=== PATIENT | female | born 1945 | race African-American/Black ===

== ENCOUNTER 2020-08-14 13:10 | Outpatient (CLI) | payer MEDICARE ==
[2020-08-15 01:19] LABS: SARS-CoV-2 PCR by NAA Not Detected (NotDetected)
== END 2020-08-14 13:11 | disposition home or self-care (01) ==
LOC: CSHLAB 13:10
PROVIDERS: ATTEND Internal Medicine
DX: Z20.822 Contact with and (suspected) exposure to COVID-19 (principal); J45.40 Moderate persistent asthma, uncomplicated
CPT/HCPCS: 87635; U0003; U0005

== ENCOUNTER 2020-08-19 13:19 | Outpatient (CLI) | payer MEDICARE | END 2020-08-19 13:20 | disposition home or self-care (01) | LOC: CSHCP 13:19 | PROVIDERS: ATTEND Internal Medicine | DX: J45.40 Moderate persistent asthma, uncomplicated (principal); R94.2 Abnormal results of pulmonary function studies | CPT/HCPCS: 94060; 94726; 94729; 94760 ==

== ENCOUNTER 2021-06-15 12:30 | Outpatient (CLI) | payer MEDICARE ==
[2021-06-16 00:03] LABS: SARS-CoV-2 PCR by NAA Not Detected (NotDetected)
== END 2021-06-15 12:31 | disposition home or self-care (01) ==
LOC: CSHLAB 12:30
PROVIDERS: ATTEND Internal Medicine Gastroenterology
DX: Z20.822 Contact with and (suspected) exposure to COVID-19 (principal); R13.10 Dysphagia, unspecified; R10.9 Unspecified abdominal pain
CPT/HCPCS: U0003; U0005

== ENCOUNTER 2021-06-18 06:04 | Day surgery (SDC) | payer MEDICARE ==
[2021-06-09 14:00] VITALS: BMI 32.8
[2021-06-18] MEDS ORDERED: Lidocaine 1% MPF 2 ML VIAL ONE (06:50)
[2021-06-18] MEDS ORDERED: Ondansetron PF 4 MG/2 ML Vial ONE (07:27)
== END 2021-06-18 09:54 | disposition home or self-care (01) ==
LOC: CSHSDC 06:04
PROVIDERS: ATTEND Internal Medicine Gastroenterology
PROC: 0DB68ZZ Excision of Stomach, Via Natural or Artificial Opening Endoscopic (ICD-10-PCS; principal; 2021-06-18)
DX: R13.10 Dysphagia, unspecified (principal); R10.9 Unspecified abdominal pain; K31.7 Polyp of stomach and duodenum; K44.9 Diaphragmatic hernia without obstruction or gangrene; I10 Essential (primary) hypertension; E78.5 Hyperlipidemia, unspecified; E11.9 Type 2 diabetes mellitus without complications
CPT/HCPCS: 88305; 88312; J2405

== ENCOUNTER 2022-05-23 07:55 | Day surgery (SDC) | payer MEDICARE ==
[2022-05-19 14:16] VITALS: BMI 33.2
[~2022-05-23 07:55] MED LIST: PROPOFOL 40 ML ONE
[2022-05-23] MEDS ORDERED: PROPOFOL 20 ML ONE (10:22)
[2022-05-23] MEDS ORDERED: Lidocaine 2% PF 100 mg/5 ml Syringe ONE (11:29)
== END 2022-05-23 11:18 | disposition home or self-care (01) ==
LOC: CSHSDC 07:55
PROVIDERS: ATTEND Internal Medicine Gastroenterology
PROC: 0DDH8ZX Extraction of Cecum, Via Natural or Artificial Opening Endoscopic, Diagnostic (ICD-10-PCS; principal; 2022-05-23)
PROC: 0DDN8ZX Extraction of Sigmoid Colon, Via Natural or Artificial Opening Endoscopic, Diagnostic (ICD-10-PCS; 2022-05-23)
DX: K51.40 Inflammatory polyps of colon without complications (principal); K57.30 Diverticulosis of large intestine without perforation or abscess without bleeding; K64.9 Unspecified hemorrhoids; K59.00 Constipation, unspecified; K21.9 Gastro-esophageal reflux disease without esophagitis; I10 Essential (primary) hypertension; E78.5 Hyperlipidemia, unspecified; J45.909 Unspecified asthma, uncomplicated; G47.33 Obstructive sleep apnea (adult) (pediatric); Z79.899 Other long term (current) drug therapy; Z79.02 Long term (current) use of antithrombotics/antiplatelets
CPT/HCPCS: 88305; J2001; J2704

== ENCOUNTER 2022-05-30 15:25 | Outpatient (CLI) | payer MEDICARE | END 2022-05-30 15:26 | disposition home or self-care (01) | LOC: CSHRAD 15:25 | PROVIDERS: ATTEND Internal Medicine | DX: M53.3 Sacrococcygeal disorders, not elsewhere classified (principal); M47.816 Spondylosis without myelopathy or radiculopathy, lumbar region; M41.86 Other forms of scoliosis, lumbar region | CPT/HCPCS: 72100 ==

== ENCOUNTER 2022-06-24 16:04 | Outpatient (CLI) | payer MEDICARE ==
[2022-06-24 16:21] LABS: #Eosinphils 0.2 10x3/uL (0.0-0.5); #Neutrophils 3.8 10x3/uL (1.5-8.4); %Basophils 0.3 % (0.0-2.0); %Eosinophils 2.1 % (0.0-6.0); %Lymphocytes 30.9 % (18.0-47.0); %Monocytes 13.2 % (0.0-10.0); %Neutrophils 53.2 % (40.0-75.0); Hemoglobin 11.8 g/dL (12.0-15.5); Mean Corpuscular HGB CONC 32.5 g/dL (32.0-36.0); Mean Corpuscular Hemoglobin 28.9 pg (27.0-33.0); Mean Corpuscular Volume 88.8 fl (81.6-98.3); Mean Platelet Volume 10.2 fl (7.4-10.4); Platelet Count 359 10x3/uL (150-450); RBC Distribution Width 14.6 % (11.5-14.5); Red Blood Cell (RBC) Count 4.09 10x6/uL (3.90-5.03); White Blood Cell (WBC) Count 7.2 10x3/uL (3.5-10.5)
[2022-06-24 16:53] LABS: ALT (SGPT) 14 U/L (8-55); AST (SGOT) 17 U/L (5-34); Albumin 4.1 g/dL (3.4-4.8); Alkaline Phosphatase 109 U/L (40-110); Anion Gap 14 mmol/L (10-20); BUN (Urea Nitrogen) 15 mg/dL (9.8-20.1); Bilirubin, Total 0.3 mg/dL (0.2-1.2); Calc. Creatinine Clearance 0 mL/min (70-130); Calcium 9.9 mg/dL (7.8-10.44); Carbon Dioxide 28 mmol/L (23-31); Chloride 106 mmol/L (98-107); Estimated GFR 53; Globulin 3.6 g/dL (2.4-3.5); Glucose 91 mg/dL (83-110); Potassium 3.8 mmol/L (3.5-5.1); Protein, Total 7.7 g/dL (5.8-8.1); Sodium 144 mmol/L (136-145)
[2022-06-24 17:09] LABS: Cardiac Risk 2.6 (Less than 4.5); Cholesterol 150 mg/dl (< 200 Desired); HDL Cholesterol 57 mg/dL (>60 Neg Risk); LDL Cholesterol, Calculated 70 mg/dL; Triglycerides 116 mg/dL (Less than 150)
[2022-06-24 20:35] LABS: Hemoglobin A1c 5.8 % (4.0-6.0)
== END 2022-06-24 16:05 | disposition home or self-care (01) ==
LOC: CJX 16:04
PROVIDERS: ATTEND Internal Medicine
DX: J06.9 Acute upper respiratory infection, unspecified (principal); Z20.822 Contact with and (suspected) exposure to COVID-19; R73.03 Prediabetes; I10 Essential (primary) hypertension; E78.2 Mixed hyperlipidemia; K59.09 Other constipation
CPT/HCPCS: 80061; 83036; U0003; U0005; 36415; 80053; 84443; 85025

== ENCOUNTER 2022-08-07 11:01 | Emergency (ER) | payer MEDICARE | END 2022-08-07 12:05 | disposition home or self-care (01) | LOC: CSHERS 11:01 | DX: J18.9 Pneumonia, unspecified organism (principal); I10 Essential (primary) hypertension | CPT/HCPCS: 71045; 93005 ==

== ENCOUNTER 2023-01-14 16:56 | Emergency (ER) | payer MEDICARE ==
[2023-01-14 17:55] LABS: #Eosinphils 0.2 10x3/uL (0.0-0.5); %Basophils 0.5 % (0.0-2.0); %Eosinophils 2.1 % (0.0-6.0); %Lymphocytes 26.6 % (18.0-47.0); %Monocytes 12.2 % (0.0-10.0); %Neutrophils 58.4 % (40.0-75.0); Hematocrit 35.8 % (34.9-44.5); Hemoglobin 11.7 g/dL (12.0-15.5); Mean Corpuscular HGB CONC 32.7 g/dL (32.0-36.0); Mean Corpuscular Hemoglobin 29.5 pg (27.0-33.0); Mean Corpuscular Volume 90.4 fl (81.6-98.3); Mean Platelet Volume 10.9 fl (7.4-10.4); Platelet Count 318 10x3/uL (150-450); RBC Distribution Width 14.9 % (11.5-14.5); Red Blood Cell (RBC) Count 3.96 10x6/uL (3.90-5.03); White Blood Cell (WBC) Count 8.5 10x3/uL (3.5-10.5)
[2023-01-14 18:09] LABS: ALT (SGPT) 13 U/L (8-55); AST (SGOT) 18 U/L (5-34); Albumin 4.3 g/dL (3.4-4.8); Alkaline Phosphatase 92 U/L (40-110); Anion Gap 16 mmol/L (10-20); BUN (Urea Nitrogen) 20 mg/dL (9.8-20.1); Bilirubin, Total 0.3 mg/dL (0.2-1.2); Calc. Creatinine Clearance 0 mL/min (70-130); Calcium 9.3 mg/dL (7.8-10.44); Carbon Dioxide 21 mmol/L (23-31); Chloride 107 mmol/L (98-107); Estimated GFR 53; Glucose 113 mg/dL (83-110); Protein, Total 7.3 g/dL (5.8-8.1); Sodium 140 mmol/L (136-145)
[2023-01-14 18:14] LABS: Troponin I 0.012 ng/mL (< 0.028)
== END 2023-01-14 19:24 | disposition home or self-care (01) ==
LOC: CSHERS 16:56
DX: M25.512 Pain in left shoulder (principal); I10 Essential (primary) hypertension; E11.9 Type 2 diabetes mellitus without complications
CPT/HCPCS: 71045; 80053; 84484; 85025; 93005

== ENCOUNTER 2023-10-13 07:19 | Outpatient (CLI) | payer MEDICARE | END 2023-10-13 07:20 | disposition home or self-care (01) | LOC: CSHULT 07:19 | PROVIDERS: ATTEND Internal Medicine | DX: R10.11 Right upper quadrant pain (principal) | CPT/HCPCS: 76700 ==